=== PATIENT | female | born 1985 | race American Indian/Alaskan Native ===

== ENCOUNTER 2017-04-23 14:56 | Emergency (ER) | payer MEDICAID ==
--- NOTE | 2017-04-23 15:52 | EDM.PDOC ---
ED HPI GENERAL MEDICAL PROBLEM - General Chief Complaint: Upper Extremity Injury/Pain Stated Complaint: LT COLLARBONE (POSSIBLY BROKEN) Time Seen by Provider: 04/23/17 15:19 Source of Information: Reports: Patient History Limitations: Reports: No Limitations - History of Present Illness INITIAL COMMENTS - FREE TEXT/NARRATIVE: This patient was brought in by a male friend with possibly a fractured collarbone. This lady has been drinking heavily all day and she was playing football with some friends. Apparently she fell was tackled and now has pain to the mid right clavicle area. - Related Data Allergies Allergy/AdvReac Type Severity Reaction Status Date / Time No Known Allergies Allergy Verified 04/23/17 15:18 Home Meds: Home Meds NK [No Known Home Meds] 04/23/17 [History] Past Medical History - Past Surgical History GI Surgical History: Reports: Cholecystectomy Female Surgical History: Reports: Section Social & Family History - Tobacco Use Smoking Status *Q: Current Every Day Smoker Years of Tobacco use: 10 Packs/Tins Daily: 0.5 - Recreational Drug Use Recreational Drug Use: Yes Recreational Drug Type: Reports: Marijuana/Hashish Review of Systems - Review of Systems Review Of Systems: ROS reveals no pertinent complaints other than HPI. ED EXAM, GENERAL - Physical Exam Exam: See Below Exam Limited By: No Limitations General Appearance: Alert, Other Neck: Supple, Other (the right clavicle was palpated it seems like it may be tender but there is no deformity no swelling no ecchymosis.) Respiratory/Chest: Lungs Clear Cardiovascular: Regular Rate, Rhythm Course - Vital Signs Last Recorded V/S: Last Vital Signs Temp 36.5 C 04/23/17 15:24 Pulse 102 H 04/23/17 15:24 Resp 16 04/23/17 15:24 BP 116/68 04/23/17 15:24 Pulse Ox 100 04/23/17 15:24 - Radiology Interpretation Free Text/Narrative:: X-ray of the right clavicle shows no evidence of fracture - Re-Assessments/Exams Free Text/Narrative Re-Assessment/Exam: 05/02/17 21:14 This patient has no evidence of a clavicle fracture she says she does have a sling at home although another one was offered here and I understand she declined it. Departure - Departure Time of Disposition: 15:51 Disposition: Home, Self-Care 01 Condition: Fair Clinical Impression: Fracture of clavicle - Discharge Information Instructions: Clavicle Fracture, [id number] Referrals: PCP,None [Primary Care Provider] - Forms: ED Department Discharge Additional Instructions: There is no obvious fracture of the clavicle but it could possibly have a crack in it that I can't see on the x-ray. Therefore keep your arm in the sling until it's feeling better that may take a few weeks. If it's not getting better by then see your doctor for a repeat x-ray.
--- NOTE | 2017-04-26 10:26 | CR ---
Left clavicle There is a healed fracture of the mid clavicle. The glenohumeral as well as AC joints are unremarkabl e. Impression: 1. No acute findings.
== END 2017-04-23 16:00 | disposition home or self-care (01) ==
LOC: JP.ED 14:56
DX: S42.001A Fracture of unspecified part of right clavicle, initial encounter for closed fracture (principal); F17.210 Nicotine dependence, cigarettes, uncomplicated; W19.XXXA Unspecified fall, initial encounter; Y93.61 Activity, american tackle football
CPT/HCPCS: 73000-26-LT; 73000-LT; 99284